=== PATIENT | female | born 1955 | race Caucasian/White ===

== ENCOUNTER 2019-05-01 08:00 | Emergency (ER) | payer MEDICARE ==
[2019-05-01] MEDS ORDERED: Fluorescein Opthalmic Strip ONE (08:06)
== END 2019-05-01 08:25 | disposition home or self-care (01) ==
LOC: SCSER 08:00
DX: T15.12XA Foreign body in conjunctival sac, left eye, initial encounter (principal); E03.9 Hypothyroidism, unspecified; Z79.899 Other long term (current) drug therapy; W45.8XXA Other foreign body or object entering through skin, initial encounter
CPT/HCPCS: 67938

== ENCOUNTER 2020-09-09 07:31 | Outpatient (CLI) | payer MEDICARE, BC, OTHER ==
[2020-09-10 12:52] LABS: SARS-CoV-2 MS2 Positive; SARS-CoV-2 N Gene Negative; SARS-CoV-2 S Gene Negative; SARS-CoV-2 by NAA Not Detected (NotDetected); SARS-CoV-2 orf1ab Negative
== END 2020-09-09 07:32 | disposition home or self-care (01) ==
LOC: LABBT 07:31
PROVIDERS: ATTEND Plastic Surgery
DX: C44.709 Unspecified malignant neoplasm of skin of left lower limb, including hip (principal); Z20.828 Contact with and (suspected) exposure to other viral communicable diseases
CPT/HCPCS: 87635; U0003

== ENCOUNTER 2020-09-14 07:29 | Day surgery (SDC) | payer MEDICARE ==
[2020-09-11 11:25] VITALS: BMI 22.9
[2020-09-14] MEDS ORDERED: Heparin 5,000 UNITS/ML VIAL ONE (07:56)
[2020-09-14] MEDS ORDERED: Lidocaine 1% PF 5 ML VIAL ONE (09:52)
[2020-09-14] MEDS ORDERED: PHENYLEPHRINE-NS 100 MCG/ML 10 ML SYRINGE ONE (09:52)
[2020-09-14] MEDS ORDERED: Metoclopramide HCl 10 MG/2 ML VIAL ONE (09:52)
[2020-09-14] MEDS ORDERED: PROPOFOL 200 MG/20 ML VIAL ONE (09:52)
[2020-09-14] MEDS ORDERED: Dexamethasone 20 MG/5 ML VIAL ONE (09:52)
[2020-09-14] MEDS ORDERED: Ondansetron PF 4 MG/2 ML Vial ONE (09:52)
[2020-09-14] MEDS ORDERED: EPHEDRINE 25 MG/5 ML SYRINGE ONE (09:52)
[2020-09-14] MEDS ORDERED: Ketorolac Tromethamine 30 MG/ML VIAL ONE (09:52)
[2020-09-14] MEDS ORDERED: Fentanyl 100 MCG/2 ML VIAL ONE (12:46)
[2020-09-14] MEDS ORDERED: Bupivacaine/Epinephrine 0.25% 30 ML VIAL ONE (12:53)
[2020-09-14] MEDS ORDERED: Mineral Oil Sterile 10ML 10 ML UDCUP ONE ×2 (12:53→12:58)
[2020-09-14] MEDS ORDERED: EPINEPHrine 1 MG/ML AMP ONE (12:53)
[2020-09-14] MEDS ORDERED: Famotidine/PF 20 mg/2ml Vial ONE (13:00)
--- NOTE | 2020-09-15 09:17 | OP ---
DATE OF PROCEDURE: 09/14/2020 PREOPERATIVE DIAGNOSIS: Squamous cell carcinoma, left leg. POSTOPERATIVE DIAGNOSIS: Squamous cell carcinoma, left leg. INDICATIONS FOR PROCEDURE: The patient was referred to Plastic Surgery for a large exophytic lesion of her left leg. Biopsy came back as squamous cell carcinoma. I discussed the patient's reconstructive options with her and she had elected for a skin graft closure. On the day of surgery, she changed her mind because a skin graft would leave a deep divot that would be permanent and elected for a healing by secondary intention with wound VAC assist. PROCEDURE PERFORMED: Wide excision squamous cell carcinoma, left leg (3.2 cm including adequate margins) ([id number]). DESCRIPTION OF PROCEDURE: Following induction of adequate anesthesia, the patient was prepped and draped in usual sterile fashion in the supine position. The patient's previously biopsied skin cancer was widely excised including adequate margins. Frozen section analysis came back as margins clear. A 2-0 Prolene suture was used in a pursestring fashion to minimize the defect. A wound VAC will be placed to help close the wound and lessen the contour deformity. The patient tolerated the procedure well. Job ID: [id number]
== END 2020-09-14 16:08 | disposition home or self-care (01) ==
LOC: SDC 07:29
PROVIDERS: ATTEND Plastic Surgery
PROC: 0HBLXZZ Excision of Left Lower Leg Skin, External Approach (ICD-10-PCS; principal; 2020-09-14)
DX: C44.729 Squamous cell carcinoma of skin of left lower limb, including hip (principal); Z79.899 Other long term (current) drug therapy
CPT/HCPCS: 88305; 88331; 88332; J0171; J0690; J1100; J1644; J1885; J2405; J2704; J2765; J3010; S0028